=== PATIENT | female | born 1980 | race Hispanic/Latino ===

== ENCOUNTER 2016-08-13 19:18 | Emergency (ER) | payer OTHER ==
[~2016-08-13] VITALS: Ht 157.5 cm; Wt 124.1 kg
[~2016-08-13 19:18] MED LIST: ATEN25TA PO; HYDR25TA4 PO; INSU100C8 SUBQ; INSU100V7 SUBQ; LEVO500T16 PO; METF10002 PO; NOV100I SQ; NOVO7030I SUBQ; PHEN97.5 PO
[2016-08-13 19:24] VITALS: BP 161/87; PULSE 83; RESP 16; O2SAT 100
--- NOTE | 2016-08-13 19:46 | ED.REPORT ---
HPI-Chest Pain Under 40 Date of Service Aug 13, 2016 ED Provider: Kishore Navarro DO Pt is a 35 y.o. female with a hx of HTN and DM who presents to the ED c/o chest pain onset yesterday. Pt reports associated palpitations, SOB, and 1 episode of chills. 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 She denies abdominal pain, nausea, vomiting, fever, and cough. Nursing Notes Stated Complaint: CHEST PAIN Chief Complaint: Chest Pain Nursing Notes Reviewed: Yes Allergies: Coded Allergies: No Known Allergies (Verified Allergy, Unknown, 08/13/16) Scheduled Atenolol (Atenolol) 25 Mg Tablet 25 MG PO DAILY Hydrochlorothiazide (Hydrochlorothiazide) 25 Mg Tablet 25 MG PO DAILY Insulin Aspart (NovoLOG 70/30 U100 Insulin Vial) 100 Unit/Ml Vial 6 UNIT SUBQ AC Insulin Aspart (NovoLOG U100 Insulin Vial) 100 Unit/Ml Mdv 10 UNIT SQ TIDAC use 10 units plus correction (sliding scale) prior to meals please dispense 2 vials (pt has syringes at home at this time) Insulin Aspart (NovoLOG U100 Insulin Vial) 100 U/Ml U 10 UNIT SUBQ TIDAC use 10 units plus correction dose dispense 2 vials Insulin Glargine (Lantus U100 Insulin Vial) 100 Unit/Ml Vial 20 UNIT SUBQ HS Levofloxacin (Levaquin) 500 Mg Tablet 500 MG PO DAILY Metformin (Metformin) 1,000 Mg Tablet 1,000 MG PO BIDWM Phenazopyridine (Azo Standard) 97.5 Mg Tablet 2 TAB PO TIDWM General Time Seen by MD: 19:45 Chief Complaint Chest pain Hx Obtained From: Patient Arrived By: Walk-in Sudden in Onset?: Yes Onset Occurred: Yesterday Past Medical History Past Medical History Reports: Diabetes mellitus, Hypertension Past Surgical History tailbone cyst removal Reports: Tonsillectomy Smoking History Never Smoker Social History Alcohol Use: Denies alcohol use Drug Use: Denies drug use Ambulatory Status Independent Review of Systems Constitutional: Reports: Chills, Denies: Fever Respiratory: Reports: Shortness of breath Cardiovascular: Reports: Chest pain, Palpitations GI: Denies: Abdominal pain, Nausea, Vomiting Complete sys rev & neg: except as marked. Physical Exam Initial Vital Signs Vital Signs (First) Date Time Temp Pulse Resp B/P Pulse Ox O2 Delivery O2 Flow Rate FiO2 08/13/16 19:24 37.1 83 16 161/87 100 Room Air Initial VS: Reviewed Head / Eyes: Atraumatic, Normocephalic Extremities: Vascular intact, Neuro intact Skin: Warm, Dry, No cyanosis Neurologic: Alert, Oriented, Nonfocal Psychiatric: Mood/affect normal, Behavior normal, Normal thought content General/Constitutional: Awake, Alert, No acute distress, Well appearing, Well developed, Well hydrated, Not toxic appearing Appearance / Presentation: Positive: Obese Respiratory / Chest: Atraumatic, Breath sounds NL, Breath sounds = bilat, No respiratory distress, No rales, No rhonchi, No wheezing, No retractions, No stridor Cardiovascular: Heart rate NL, Regular rhythm, Heart sounds NL, No gallop, No murmurs, No rubs, Peripheral circulation NL Abdomen: Atraumatic, Soft, Non-tender, No guarding, No rebound, No distention Tenderness/Guarding/Rebound: Negative: Tender RUQ... Interpretation & Diagnostics Lab Results Interpretation Result Diagram: 08/13/16200908/13/162009 Test 08/13/16 20:02 08/13/16 20:10 08/13/16 22:50 Hold Urine Received (Received) White Blood Count 8.8th/mm3 (3.8-10.1) Red Blood Count 4.66mil/mm3 (3.90-5.20) Hemoglobin 12.2g/dL (12.0-15.6) Hematocrit 37.1% (35.0-46.0) Mean Corpuscular Volume 79.6fL (81-100) Mean Corpuscular Hemoglobin 26.2pg (27.0-35.0) Mean Corpuscular Hemoglobin Concent 32.9% (32.0-37.0) Red Cell Distribution Width 15.0% (12.3-15.4) Platelet Count 263bil/L (150-400) Neutrophils (%) (Auto) 67.9% (40-74) Lymphocytes (%) (Auto) 24.4% (14-46) Monocytes (%) (Auto) 7.1% (4-12) Eosinophils (%) (Auto) 0.3% (0-5) Basophils (%) (Auto) 0.2% (0-3) D-Dimer < 0.5mg/L (<0.50) Sodium Level 137mEq/L (134-144) Potassium Level 4.0mEq/L (3.5-5.2) Chloride Level 101mEq/L (97-108) Carbon Dioxide Level 20mmol/L (18-29) Blood Urea Nitrogen 20mg/dL (6-20) Creatinine 0.59mg/dL (0.57-1.00) Estimat Glomerular Filtration Rate 166mL/min (>59) Glucose Level 93mg/dL (60-99) Calcium Level 9.2mg/dL (8.5-10.1) Magnesium Level 1.5mg/dL (1.6-2.6) Total Bilirubin 0.2mg/dL (0.0-1.2) Aspartate Amino Transf (AST/SGOT) 28U/L (0-50) Alanine Aminotransferase (ALT/SGPT) 21U/L (0-32) Alkaline Phosphatase 53U/L (25-150) Total Protein 7.7g/dL (6.4-8.4) Albumin 4.2g/dL (3.4-5.0) Hold Gudino Top Tube Received (Received) Troponin T 0.010ug/L (0.0-0.011) ECG Interpretation ECG Interpretation: Q-wave in lead 3 Time: 19:48 Interpreted by: ED physician Normal ECG Interpretation: Normal rate (73), Normal sinus rhythm X-Ray Chest Interpretation Chest Xray Interpretation: IMPRESSION: No abnormality seen in the upright portable chest. Dictated by: Carlos Merrill M.D. on 08/13/2016 at 20:21 Approved by: Carlos Merrill M.D. on 08/13/2016 at 20:22 Re-Eval/Medical Decision Med Decision/Clinical Course Tiffanie seems to be suffering from palpitations. She also has a mildly tender chest wall. EKG showed some Q waves inferiorly however no acute ST elevation or depression. She also has LVH which could account for some of the change. EKGs did not show dynamic change. I watched her for 4 hours and did serial troponins. Her troponin remained normal. Her d-dimer was negative and she was low risk Wells criteria. She actually met pulmonary emboli rule out criteria. IV Dilaudid to care of all the pain. She had no interest in being admitted to the hospital. I do not think that she needs to be admitted. She certainly not having a STEMI or acute coronary syndrome. I do think that she has some chest wall pain and palpitations. Her blood pressures up a bit when she came in but came down and pain control. She will be discharged home with close outpatient follow-up. She is given Quincy take home pack for the chest wall pain. She will call her doctor tomorrow. I considered KS, PE, dissection and tension pneumothorax although be very unlikely. Re-Evaluation/Progress : Time of Eval: 22:57 Re-Evaluation/Progress Note: Pt rechecked. Pt's pain has improved with IV dilaudid. She believes she may have injured her chest at work. She is requesting pain medication to take home. Discharge & Departure Primary Impression: Chest pain Chest pain type: other chest pain Qualified Code: R07.89 - Other chest pain Disposition: Home Discharge Condition All VS Reviewed: Yes Condition: Improved Patient Instructions: Chest Pain (ED) Additional Instructions: Your EKG, chest x-ray, troponin, and d-dimer were all reassuring.Your chest pain does not appear to be life threatening. You will however need a close follow-up. Discuss having a stress test performed with your primary care physician. Call tomorrow to schedule an appointment. I will prescribe you Quincy , you can take 1 every 6 hours as needed for pain. Do not drive, drink, or consume acetaminophen while taking Quincy. Do not drive tonight as you have had pain medication administered through your IV. Return if you experience increased chest pain, difficulty breathing, or any new or worsening symptoms. Referrals: Gely Greenwood MD (PCP) Melina Attestation Portions of this note were transcribed by Bonita Daniel. I, Dr. Navarro personally performed the history, physical exam and medical decision-making; I reviewed and confirmed the accuracy of the information in the transcribed note. Signed by : Melina Long, 08/13/16 and [id number]. copies to: Gely Greenwood MD, Todd P DO Aug 13, 2016 19:45 BONITA DANIEL Aug 13, 2016 20:27
[2016-08-13 20:21] LABS: BASOPHILS % (AUTO) 0.2 % (0-3); EOSINOPHILS % (AUTO) 0.3 % (0-5); MONOCYTES % (AUTO) 7.1 % (4-12); Mean Corpuscular Hemoglobin 26.2 pg (27.0-35.0); Mean Corpuscular Volume 79.6 fL (81-100); NEUTROPHILS % (AUTO) 67.9 % (40-74); Platelet Count 263 bil/L (150-400)
--- NOTE | 2016-08-13 20:23 | DRSVH ---
PROCEDURE: X-RAY CHEST ONE VIEW, PORTABLE ([id number]) INDICATIONS: CHEST PAIN TECHNIQUE: One view of the chest was acquired. COMPARISON: [facility], CR, XR CHEST 1VW (PORTABLE), 11/02/2015, 5:06. FINDINGS: Surgical changes and devices: cardiac monitor technician leads are seen over the chest. Lungs and pleura: No pleural effusions or pneumothorax. Lungs are clear. Mediastinum: Mediastinal contours appear normal. Heart size is normal. Bones and chest wall: No suspicious bony lesions. Overlying soft tissues appear unremarkable. IMPRESSION: No abnormality seen in the upright portable chest. Dictated by: Carlos Merrill M.D. on 08/13/2016 at 20:21 Approved by: Carlos Merrill M.D. on 08/13/2016 at 20:22
[2016-08-13] MEDS ORDERED: Ondansetron 2 mg/mL 2 mL Inj IVPUSH PRN (20:35)
[2016-08-13] MEDS ORDERED: HYDROmorphone 0.5 mg/0.5 mL iSecure Syringe IVPUSH PRN (20:35)
[2016-08-13 21:06] LABS: Magnesium 1.5 mg/dL (1.6-2.6)
[2016-08-13 21:07] LABS: TROPONIN T < 0.010 ug/L (0.0-0.011)
[2016-08-13 21:30] VITALS: BP 145/78; PULSE 77; RESP 15; O2SAT 98
[2016-08-13] MEDS ORDERED: _HYDROcodone/APAP 5-325 mg Tablet PO PRN (22:55)
[2016-08-14 00:03] VITALS: BP 116/49; PULSE 83; RESP 13; O2SAT 98
== END 2016-08-14 00:04 | disposition home or self-care (01) ==
LOC: SED 19:18
DX: R07.89 Other chest pain (principal); E11.9 Type 2 diabetes mellitus without complications; I10 Essential (primary) hypertension; Z79.84 Long term (current) use of oral hypoglycemic drugs; Z79.4 Long term (current) use of insulin
CPT/HCPCS: 36415; 71010; 80053; 81025; 83735; 84484; 85025; 85379; 93005; 96374; 96375; 99285; J1170; J2405

== ENCOUNTER 2016-08-24 21:29 | Emergency (ER) | payer OTHER ==
[~2016-08-24] VITALS: Ht 157.5 cm; Wt 125.0 kg
[2016-08-24 21:47] VITALS: BP 165/82; PULSE 66; RESP 18; O2SAT 100
[2016-08-24 22:24] LABS: BASOPHILS % (AUTO) 0.3 % (0-3); EOSINOPHILS % (AUTO) 1.1 % (0-5); MONOCYTES % (AUTO) 5.8 % (4-12); Mean Corpuscular Hemoglobin 25.9 pg (27.0-35.0); Mean Corpuscular Volume 81.2 fL (81-100); Platelet Count 267 bil/L (150-400)
[2016-08-24 22:32] LABS: Magnesium 1.6 mg/dL (1.6-2.6)
--- NOTE | 2016-08-25 00:40 | ED.REPORT ---
HPI-Abd Pain F Under 40 Date of Service Aug 25, 2016 ED Provider: Feliciano Blanton MD A 35 year old female with a history of diabetes and hypertension presents to the ED with RLQ abdominal pain onset 20:30 this evening, while making boxes at work. The pain is constant and rated 10/10. The patient also reports nausea, chills, and subjective fever. She denies diarrhea, vomiting, rash, or other symptoms. The patient has never had similar symptoms in the past. Nursing Notes Stated Complaint: DEEP PAIN IN STOMACH Chief Complaint: Female Abdominal Pain Nursing Notes Reviewed: Yes Allergies: Coded Allergies: No Known Allergies (Verified Allergy, Unknown, 08/24/16) Scheduled Atenolol (Atenolol) 25 Mg Tablet 25 MG PO DAILY Hydrochlorothiazide (Hydrochlorothiazide) 25 Mg Tablet 25 MG PO DAILY Insulin Aspart (NovoLOG 70/30 U100 Insulin Vial) 100 Unit/Ml Vial 6 UNIT SUBQ AC Insulin Aspart (NovoLOG U100 Insulin Vial) 100 Unit/Ml Mdv 10 UNIT SQ TIDAC use 10 units plus correction (sliding scale) prior to meals please dispense 2 vials (pt has syringes at home at this time) Insulin Aspart (NovoLOG U100 Insulin Vial) 100 U/Ml U 10 UNIT SUBQ TIDAC use 10 units plus correction dose dispense 2 vials Insulin Glargine (Lantus U100 Insulin Vial) 100 Unit/Ml Vial 20 UNIT SUBQ HS Levofloxacin (Levaquin) 500 Mg Tablet 500 MG PO DAILY Metformin (Metformin) 1,000 Mg Tablet 1,000 MG PO BIDWM Phenazopyridine (Azo Standard) 97.5 Mg Tablet 2 TAB PO TIDWM Scheduled PRN Polyethylene Glycol 3350 (Miralax) 17 Gm Powd.pack 17 GM PO TID PRN PRN For Constipation General Time Seen by MD: 00:32 Chief Complaint Abdominal pain Hx Obtained From: Patient Arrived By: Walk-in Sudden in Onset?: No Onset Occurred: 1 - 4 hours ago Symptom Duration: Since onset Location: : RLQ Quality: Painful Severity: Current: Pain level 10 out of 10 Severity: Maximum: Pain level 10 out of 10 Associated with: Reports: Chills, Fever, Nausea, Denies: Diarrhea, Vomiting Pertinent Negative: Relieved by nothing Recent Healthcare: No recent doctor visit Similar Sx Previous: No Past Medical History Past Medical History Reports: Diabetes mellitus, Hypertension Past Surgical History Tailbone cyst removal Tonsillectomy Smoking History Never Smoker Social History Alcohol Use: Denies alcohol use Drug Use: Denies drug use Other Social History: Good social support Ambulatory Status Independent Review of Systems Constitutional: Reports: Chills, Fever (Subjective ) Respiratory: Denies: Non-productive cough, Shortness of breath GI: Reports: Abdominal pain (RLQ), Nausea, Denies: Diarrhea, Vomiting Complete sys rev & neg: except as marked. Skin: Denies Rash Physical Exam Initial Vital Signs Vital Signs (First) Date Time Temp Pulse Resp B/P Pulse Ox O2 Delivery O2 Flow Rate FiO2 08/24/16 21:47 37.0 66 18 165/82 100 Room Air Initial VS: Reviewed, Vital signs normal Head / Eyes: Atraumatic, Normocephalic ENT: Conjunctiva normal, No scleral icterus Skin: Warm, Dry, No cyanosis Neurologic: Alert, Oriented, Nonfocal Psychiatric: Mood/affect normal, Behavior normal, Normal thought content General/Constitutional: Awake, Alert Respiratory / Chest: Breath sounds NL, Breath sounds = bilat, No respiratory distress Cardiovascular: Heart rate NL, Regular rhythm, Heart sounds NL Abdomen: Soft Tenderness/Guarding/Rebound: Positive: Guarding voluntary, McBurney's point tender, Tender RLQ... (Worst), Tender diffuse Rovsing's sign positive Interpretation & Diagnostics US APPENDIX: CONCLUSION: The appendix was not convincingly identified. Transmitted to ED by Radiologist Gerard Pratt M.D. at 08/25/2016 - 2:43:00 AM PDT URINE : Negative URINE DIPSTICK: 1.015 sp gravity 6 pH + Leukocyte Esterase +(30) Protein 1000mg/dl Glucose Normal Urobilinogen ~250 Sudeep/ml Occult Blood Lab Results Interpretation Result Diagram: 08/24/16 2202 08/24/16 2202 Test 08/24/16 22:02 08/25/16 01:25 White Blood Count 6.3th/mm3 (3.8-10.1) Red Blood Count 4.25mil/mm3 (3.90-5.20) Hemoglobin 11.0g/dL (12.0-15.6) Hematocrit 34.5% (35.0-46.0) Mean Corpuscular Volume 81.2fL (81-100) Mean Corpuscular Hemoglobin 25.9pg (27.0-35.0) Mean Corpuscular Hemoglobin Concent 31.9% (32.0-37.0) Red Cell Distribution Width 14.7% (12.3-15.4) Platelet Count 267bil/L (150-400) Neutrophils (%) (Auto) 50.0% (40-74) Lymphocytes (%) (Auto) 42.6% (14-46) Monocytes (%) (Auto) 5.8% (4-12) Eosinophils (%) (Auto) 1.1% (0-5) Basophils (%) (Auto) 0.3% (0-3) Sodium Level 135mEq/L (134-144) Potassium Level 4.2mEq/L (3.5-5.2) Chloride Level 97mEq/L (97-108) Carbon Dioxide Level 24mmol/L (18-29) Blood Urea Nitrogen 18mg/dL (6-20) Creatinine 0.67mg/dL (0.57-1.00) Estimat Glomerular Filtration Rate 143mL/min (>59) Glucose Level 231mg/dL (60-99) Calcium Level 9.0mg/dL (8.5-10.1) Magnesium Level 1.6mg/dL (1.6-2.6) Total Bilirubin 0.2mg/dL (0.0-1.2) Aspartate Amino Transf (AST/SGOT) 20U/L (0-50) Alanine Aminotransferase (ALT/SGPT) 13U/L (0-32) Alkaline Phosphatase 51U/L (25-150) Total Protein 7.5g/dL (6.4-8.4) Albumin 4.1g/dL (3.4-5.0) Lipase 55U/L (13-60) Hold Gudino Top Tube Received (Received) Urine Color Yellow (YELLOW) Urine Appearance Clear (CLEAR,HAZY) Urine pH 6.0 (5.0-8.0) Urine Specific [place] 1.020 (1.003-1.035) Urine Protein 30mg/dL (NEG,TRACE) Urine Glucose (UA) 1000mg/dL (NEGATIVE) Urine Ketones Negativemg/dL (NEGATIVE) Urine Occult Blood Moderate (NEGATIVE) Urine Nitrite Negative (NEGATIVE) Urine Bilirubin Negative (NEGATIVE) Urine Urobilinogen Normalmg/dL (NORMAL) Urine Leukocyte Esterase Negative (NEGATIVE) Urine RBC 11-50/hpf (0-2) Urine WBC 0-5/hpf (0-5) Urine Epithelial Cells Few/hpf (NONE-MOD) Urine Crystals None seen (NONE SEEN) Urine Bacteria None/hpf (NONE-FEW) Urine Hyaline Casts None/lpf (NONE) Urine Granular Casts None seen (NONE SEEN) Urine Waxy Casts None seen (NONE SEEN) Urine Red Blood Cell Casts None seen (NONE SEEN) Urine White Blood Cell Casts None seen (NONE SEEN) Urine Mucus None seen (None Seen) Urine Trichomonas None seen (NONE SEEN) Urine Yeast None (NONE SEEN) Urinalysis Comment None Urine Culture Reflexed Not indicated Lab Results Interpretation: Mild chronic anemia, elevated nonfasting glucose. CT Abd / Pelvis Interpretation CONCLUSION: Normal appendix. Diverticulosis with no evidence of diverticulitis. Retained stool within the colon suggestive of mild constipation. Transmitted to ED at 08/25/2016 3:19:14 AM PDT by Gerard Pratt M.D. Study type: Abdominal CT IV contrast Interpretation / Wet Read by: Interpret - Radiologist Re-Eval/Medical Decision Med Decision/Clinical Course 35-year-old female with abdominal pain mostly localized on the right side. Labs are unremarkable. CT scan shows only obstipation, with no other significant abnormalities seen. She will use magnesium citrate and MiraLAX. Follow up with her primary doctor. Source of Hx: Old records Re-Evaluation/Progress : Time of Eval: 04:37 Patient Status: Condition improved Re-Evaluation/Progress Note: Discussed with patient lab, CT, and US results, diagnosis, and plan for discharge. Follow-up and return to the ER instructions given. Patient agrees with plan for care and all questions were addressed. Counseled Regarding: Diagnosis, Lab results, Need for follow-up, When/why to return to ED Discharge & Departure Primary Impression: Constipation Constipation type: unspecified constipation type Qualified Code: K59.00 - Constipation, unspecified Additional Impression: Abdominal pain Abdominal location: generalized Qualified Code: R10.84 - Generalized abdominal pain Disposition: Home Discharge Condition All VS Reviewed: Yes Condition: Improved Patient Instructions: Constipation (ED) Additional Instructions: Your CT scan showed retained stool within the colon suggestive of mild constipation. No other significant abnormality is noted. Magnesium citrate one bottle orally in the a.m. for a BM in the p.m. MiraLAX 1 capful mixed with 8 ounces of liquid 3-4 times daily until stool is soft. Follow-up with your primary care provider. Return to the ER with any new or worsening symptoms. Referrals: Gely Greenwood MD (PCP) Scribe Attestation Portions of this note were transcribed by Daly Cordova. I, Dr. Blanton, personally performed the history, physical exam, and medical decision-making; I reviewed and confirmed the accuracy of the information in the transcribed note. Signed by: Melina Luna, 08/25/2016, 05:05 copies to: Gely Greenwood MD, Howard L MD Aug 25, 2016 00:40 DALY CORDOVA Aug 25, 2016 01:07
[2016-08-25 02:00] LABS: COLOR,URINE YELLOW (YELLOW)
[2016-08-25 02:01] LABS: APPEARANCE,URINE CLEAR (CLEAR,HAZY); OCCULT BLOOD,URINE MODERATE (NEGATIVE); UROBILINOGEN,URINE NORMAL (NORMAL)
[2016-08-25] MEDS ORDERED: POLY17PO6 PO (04:50)
[2016-08-25 05:15] VITALS: BP 156/84; PULSE 102; RESP 16; O2SAT 98
--- NOTE | 2016-08-25 08:32 | DRSVH ---
PROCEDURE: CT ABDOMEN AND PELVIS WITH CONTRAST ([id number]) INDICATIONS: RLQ abd pain, nonvis US TECHNIQUE: After the administration of intravenous contrast, 5 mm thick sections acquired from the diaphragm to the symphysis. 5 mm coronal and sagittal reformats were acquired. For radiation dose reduction, the following was used: automated exposure control, adjustment of mA and/or kV according to patient siz e. COMPARISON: None. FINDINGS: Image quality: Excellent. ABDOMEN: Lung bases: Lung bases are clear. Heart size is normal. Solid organs: Liver and spleen are normal in size and enhancement. Gallbladder is unremarkable. Bi liary system is non dilated. Pancreas enhances normally. No adrenal nodules. Kidneys demonstrate n ormal size and enhancement, without hydronephrosis. Peritoneum and bowel: Bowel loops demonstrate normal wall thickness and caliber. The appendix is thi n walled and gas filled.There are scattered sigmoid diverticula. No evidence for diverticulitis. No f ree fluid or air. Nodes and vessels: No retroperitoneal or mesenteric adenopathy by size criteria. Aorta and inferior vena cava are normal in size. Miscellaneous: No ventral hernias. PELVIS: Genitourinary: Bladder wall thickness is normal. The uterus and ovaries are grossly unremarkable. Miscellaneous: No inguinal hernias or adenopathy. Bones: No suspicious bony lesions. No vertebral body compression fractures. IMPRESSION: 1. No acute intra-abdominal findings. Normal appendix. 2. Mild diverticulosis. No acute diverticulitis. Note: The preliminary [facility] interpretation and the final report are concordant. Dictated by: Emily Quiroz M.D. on 08/25/2016 at 8:28 Approved by: Emily Quiroz M.D. on 08/25/2016 at 8:31
--- NOTE | 2016-08-25 09:14 | DRSVH ---
PROCEDURE: US APPENDIX INDICATIONS: RLQ abd pain TECHNIQUE: Real-time focused scanning was performed of the abdomen with attention to the appendix, with image do cumentation. COMPARISON: None. FINDINGS: Limited evaluation of the right lower quadrant demonstrates no abnormalities. The appendix is not cl early identified sonographically. No abnormal fluid collections or masses seen. IMPRESSION: The appendix is not definitively identified and appendicitis cannot be excluded. If bib cated CT could be performed. Note: These findings are concordant with the preliminary interpretation. Dictated by: Alin COLLINS Interpreted: Augusto Garcia MD on 08/25/2016 at 9:13 Transcribed by: MARIPOSA on 08/25/2016 at 9:14 Approved by: Augusto Garcia M.D. on 08/25/2016 at 17:06
== END 2016-08-25 05:02 | disposition home or self-care (01) ==
LOC: SED 21:29
DX: K59.00 Constipation, unspecified (principal); R10.84 Generalized abdominal pain; E11.9 Type 2 diabetes mellitus without complications; I10 Essential (primary) hypertension; Z79.4 Long term (current) use of insulin; Z79.84 Long term (current) use of oral hypoglycemic drugs
CPT/HCPCS: 36415; 74177; 76705; 80053; 81000; 81025; 83690; 83735; 85025; 99284; Q9967

== ENCOUNTER 2016-10-06 18:51 | Emergency (ER) | payer OTHER ==
[~2016-10-06] VITALS: Ht 157.5 cm; Wt 121.4 kg
[~2016-10-06 18:51] MED LIST changes: +POLY17PO6 PO
[2016-10-06 18:57] VITALS: BP 140/94; PULSE 89; RESP 16; O2SAT 100
[2016-10-06] MEDS ORDERED: 0.9% Sodium Chloride 1,000 ML IV ONE (19:19)
[2016-10-06] MEDS ORDERED: Ondansetron 2 mg/mL 2 mL Inj IVPUSH PRN (19:20)
[2016-10-06] MEDS ORDERED: HYDROmorphone 0.5 mg/0.5 mL iSecure Syringe IVPUSH PRN (19:20)
--- NOTE | 2016-10-06 19:21 | ED.REPORT ---
HPI-Abd Pain F Under 40 Date of Service October 06, 2016 ED Provider: Demar Bray MD 35 y/o female with a hx of DM Type I and HTN presents to the ED complaining of abdominal pain, onset 3 days ago, with worse pain in the lower quadrant. She also complains of nausea, chills and lack of appetite. The pt denies abnormal vaginal discharge, bleeding and dysuria. Pt is not sexually active and denies hx of STDs. Pt's PCP: Dr Greenwood at [facility]. Nursing Notes Stated Complaint: ABDOMINAL PAIN Chief Complaint: Female Abdominal Pain Nursing Notes Reviewed: Yes Allergies: Coded Allergies: No Known Allergies (Verified Allergy, Unknown, 08/24/16) Scheduled Atenolol (Atenolol) 25 Mg Tablet 25 MG PO DAILY Hydrochlorothiazide (Hydrochlorothiazide) 25 Mg Tablet 25 MG PO DAILY Insulin Aspart (NovoLOG 70/30 U100 Insulin Vial) 100 Unit/Ml Vial 6 UNIT SUBQ AC Insulin Aspart (NovoLOG U100 Insulin Vial) 100 Unit/Ml Mdv 10 UNIT SQ TIDAC use 10 units plus correction (sliding scale) prior to meals please dispense 2 vials (pt has syringes at home at this time) Insulin Aspart (NovoLOG U100 Insulin Vial) 100 U/Ml U 10 UNIT SUBQ TIDAC use 10 units plus correction dose dispense 2 vials Insulin Glargine (Lantus U100 Insulin Vial) 100 Unit/Ml Vial 20 UNIT SUBQ HS Levofloxacin (Levaquin) 500 Mg Tablet 500 MG PO DAILY Metformin (Metformin) 1,000 Mg Tablet 1,000 MG PO BIDWM Metronidazole (Metrogel-Vaginal) 5 Applic/70 Gm Gel 1 APPLIC VG HS Phenazopyridine (Azo Standard) 97.5 Mg Tablet 2 TAB PO TIDWM Sulfamethoxazole/Trimeth 800-160 mg (Bactrim DS) 1 Each Tablet 1 TABLET PO BID Scheduled PRN Polyethylene Glycol 3350 (Miralax) 17 Gm Powd.pack 17 GM PO TID PRN PRN For Constipation General Time Seen by MD: 19:16 Chief Complaint Abdominal pain Hx Obtained From: Patient Arrived By: Walk-in Sudden in Onset?: No Onset Occurred: 3 days ago Symptom Duration: Since onset Location: : Abdomen lower Quality: Painful Severity: Current: Mild Severity: Maximum: Mild Recent Healthcare: Recent doctor visit Similar Sx Previous: No Past Medical History Past Medical History Reports: Diabetes mellitus, Hypertension Past Surgical History Tailbone cyst removal Tonsillectomy Smoking History Never Smoker Social History Alcohol Use: Denies alcohol use Drug Use: Denies drug use Other Social History: Good social support Ambulatory Status Independent Review of Systems Reports: lack of appetite. Constitutional: Reports: Chills GI: Reports: Abdominal pain, Nausea Female: Denies: Dysuria, Vaginal bleeding - abnl, Vaginal discharge Complete sys rev & neg: except as marked. Physical Exam Initial Vital Signs Vital Signs (First) Date Time Temp Pulse Resp B/P Pulse Ox O2 Delivery O2 Flow Rate FiO2 10/06/16 18:57 36.7 89 16 140/94 100 Room Air Initial VS: Reviewed Head / Eyes: Atraumatic, Normocephalic, PERRL ENT: Mucous membranes moist, Conjunctiva normal, No scleral icterus Neck: Supple, Full range of motion Extremities: Vascular intact, Neuro intact, No swelling, No tenderness Skin: Warm, Dry, No cyanosis Neurologic: Alert, Oriented, Nonfocal General/Constitutional: Awake, Alert, Cooperative, Not toxic appearing Appearance / Presentation: Positive: Obese Respiratory / Chest: Atraumatic, Breath sounds NL, Breath sounds = bilat, No respiratory distress, No rales, No rhonchi, No wheezing Cardiovascular: Heart rate NL, Regular rhythm, Heart sounds NL, No gallop, No murmurs Abdomen: Atraumatic, No guarding, No rebound Suprapubic tenderness. Back: Atraumatic, Full range of motion, Non-tender Pelvic Exam: Negative: Adnexal tenderness L, Adnexal tenderness R, Cervical motion tend... Normal external genitalia. Interpretation & Diagnostics Lab Results Interpretation Result Diagram: 10/06/16191110/06/162024 Test 10/06/16 19:12 10/06/16 20:25 10/06/16 21:49 White Blood Count 7.3th/mm3 (3.8-10.1) Red Blood Count 3.93mil/mm3 (3.90-5.20) Hemoglobin 10.3g/dL (12.0-15.6) Hematocrit 31.3% (35.0-46.0) Mean Corpuscular Volume 79.6fL (81-100) Mean Corpuscular Hemoglobin 26.2pg (27.0-35.0) Mean Corpuscular Hemoglobin Concent 32.9% (32.0-37.0) Red Cell Distribution Width 14.5% (12.3-15.4) Platelet Count 323bil/L (150-400) Neutrophils (%) (Auto) 68.5% (40-74) Lymphocytes (%) (Auto) 21.2% (14-46) Monocytes (%) (Auto) 9.2% (4-12) Eosinophils (%) (Auto) 0.6% (0-5) Basophils (%) (Auto) 0.4% (0-3) Hold Purple Top Tube Received (Received) Urine Color Yellow (YELLOW) Urine Appearance Clear (CLEAR,HAZY) Urine pH 6.0 (5.0-8.0) Urine Specific [place] <1.005 (1.003-1.035) Urine Protein 100mg/dL (NEG,TRACE) Urine Glucose (UA) 500mg/dL (NEGATIVE) Urine Ketones 15mg/dL (NEGATIVE) Urine Occult Blood Small (NEGATIVE) Urine Nitrite Negative (NEGATIVE) Urine Bilirubin Negative (NEGATIVE) Urine Urobilinogen Normalmg/dL (NORMAL) Urine Leukocyte Esterase Moderate (NEGATIVE) Urine RBC 0-2/hpf (0-2) Urine WBC >50/hpf (0-5) Urine Epithelial Cells Many/hpf (NONE-MOD) Urine Crystals None seen (NONE SEEN) Urine Bacteria Few/hpf (NONE-FEW) Urine Hyaline Casts None/lpf (NONE) Urine Granular Casts None seen (NONE SEEN) Urine Waxy Casts None seen (NONE SEEN) Urine Red Blood Cell Casts None seen (NONE SEEN) Urine White Blood Cell Casts None seen (NONE SEEN) Urine Mucus None seen (None Seen) Urine Trichomonas Present (NONE SEEN) Urine Yeast None (NONE SEEN) Urinalysis Comment None Urine Culture Reflexed Indicated Hold Urine Received (Received) Hold [place] Top Tube Received (Received) Sodium Level 129mEq/L (134-144) Potassium Level 3.9mEq/L (3.5-5.2) Chloride Level 92mEq/L (97-108) Carbon Dioxide Level 22mmol/L (18-29) Blood Urea Nitrogen 12mg/dL (6-20) Creatinine 0.64mg/dL (0.57-1.00) Estimat Glomerular Filtration Rate 151mL/min (>59) Glucose Level 295mg/dL (60-99) Calcium Level 8.9mg/dL (8.5-10.1) Magnesium Level 2.0mg/dL (1.6-2.6) Total Bilirubin 0.3mg/dL (0.0-1.2) Aspartate Amino Transf (AST/SGOT) 11U/L (0-50) Alanine Aminotransferase (ALT/SGPT) 9U/L (0-32) Alkaline Phosphatase 72U/L (25-150) Total Protein 8.0g/dL (6.4-8.4) Albumin 3.5g/dL (3.4-5.0) Lipase 35U/L (13-60) Hold [place] Top Tube Received (Received) CT Abd / Pelvis Interpretation Impression: Cystitis with pyelonephritis. Signed Shaun Billings M.D. 10/06/16; 1832 Study type: Abdominal CT IV contrast Procedures Lab Results Interpretation Result Diagram: 10/06/16191110/06/162024 Test 10/06/16 19:12 10/06/16 20:25 10/06/16 21:49 White Blood Count 7.3th/mm3 (3.8-10.1) Red Blood Count 3.93mil/mm3 (3.90-5.20) Hemoglobin 10.3g/dL (12.0-15.6) Hematocrit 31.3% (35.0-46.0) Mean Corpuscular Volume 79.6fL (81-100) Mean Corpuscular Hemoglobin 26.2pg (27.0-35.0) Mean Corpuscular Hemoglobin Concent 32.9% (32.0-37.0) Red Cell Distribution Width 14.5% (12.3-15.4) Platelet Count 323bil/L (150-400) Neutrophils (%) (Auto) 68.5% (40-74) Lymphocytes (%) (Auto) 21.2% (14-46) Monocytes (%) (Auto) 9.2% (4-12) Eosinophils (%) (Auto) 0.6% (0-5) Basophils (%) (Auto) 0.4% (0-3) Hold Purple Top Tube Received (Received) Urine Color Yellow (YELLOW) Urine Appearance Clear (CLEAR,HAZY) Urine pH 6.0 (5.0-8.0) Urine Specific [place] <1.005 (1.003-1.035) Urine Protein 100mg/dL (NEG,TRACE) Urine Glucose (UA) 500mg/dL (NEGATIVE) Urine Ketones 15mg/dL (NEGATIVE) Urine Occult Blood Small (NEGATIVE) Urine Nitrite Negative (NEGATIVE) Urine Bilirubin Negative (NEGATIVE) Urine Urobilinogen Normalmg/dL (NORMAL) Urine Leukocyte Esterase Moderate (NEGATIVE) Urine RBC 0-2/hpf (0-2) Urine WBC >50/hpf (0-5) Urine Epithelial Cells Many/hpf (NONE-MOD) Urine Crystals None seen (NONE SEEN) Urine Bacteria Few/hpf (NONE-FEW) Urine Hyaline Casts None/lpf (NONE) Urine Granular Casts None seen (NONE SEEN) Urine Waxy Casts None seen (NONE SEEN) Urine Red Blood Cell Casts None seen (NONE SEEN) Urine White Blood Cell Casts None seen (NONE SEEN) Urine Mucus None seen (None Seen) Urine Trichomonas Present (NONE SEEN) Urine Yeast None (NONE SEEN) Urinalysis Comment None Urine Culture Reflexed Indicated Hold Urine Received (Received) Hold [place] Top Tube Received (Received) Sodium Level 129mEq/L (134-144) Potassium Level 3.9mEq/L (3.5-5.2) Chloride Level 92mEq/L (97-108) Carbon Dioxide Level 22mmol/L (18-29) Blood Urea Nitrogen 12mg/dL (6-20) Creatinine 0.64mg/dL (0.57-1.00) Estimat Glomerular Filtration Rate 151mL/min (>59) Glucose Level 295mg/dL (60-99) Calcium Level 8.9mg/dL (8.5-10.1) Magnesium Level 2.0mg/dL (1.6-2.6) Total Bilirubin 0.3mg/dL (0.0-1.2) Aspartate Amino Transf (AST/SGOT) 11U/L (0-50) Alanine Aminotransferase (ALT/SGPT) 9U/L (0-32) Alkaline Phosphatase 72U/L (25-150) Total Protein 8.0g/dL (6.4-8.4) Albumin 3.5g/dL (3.4-5.0) Lipase 35U/L (13-60) Hold [place] Top Tube Received (Received) Re-Eval/Medical Decision Med Decision/Clinical Course Med Decision/Clinical Course: 35 year-old diabetic who is non-toxic in appearance, has pyelonephritis by lab/imaging. Rocephin started, will treat with bactrim. Source of Hx: Old records Re-Evaluation/Progress #1: Time of Eval: 21:35 Re-Evaluation/Progress Note: Rechecked pt. She reports chills. Temperature = 38.7 degree celsius. She is also experiencing difficulty getting IV. Abdomen more pronounced and tender, greater on left side. Pt informed that a CT is required in case of appendicitis. Pt understands and agrees with the plan. Re-Evaluation/Progress #2: Time of Eval: 00:12 Patient Status: Condition improved Re-Evaluation/Progress Note: Rechecked pt. Discussed lab, imaging results and diagnosis. Informed the pt of the plan to discharge. Pt understands and agrees with plan. F/U instructions and RTER warning given. All questions addressed. Counseled Regarding: Diagnosis, Lab results, Need for follow-up, When/why to return to ED Discharge & Departure Primary Impression: Pyelonephritis Additional Impression: Trichomonas vaginitis Disposition: Home Discharge Condition All VS Reviewed: Yes Patient Instructions: Acute Pyelonephritis (ED) Additional Instructions: Emergency Department evaluation included interview, examination labs and CT of the abdomen and pelvis. Labs and imaging suggests the possibility of a kidney infection. The fever is noted otherwise you appear well and we are hoping to keep you out of the hospital. We gave IV fluids and Rocephin 2 g intravenously , this antibiotic will cover U for 24 hours. Start bactrim DS twice a day for 10 days tomorrow afternoon. Hydrocodone/APAP one to 2 every 4 hours as needed for pain, may also use ibuprofen 400-600 mg every 6-8 hours. It adequate fluids and rest. Return to emergency department. If Getting worse, having frequent vomiting increasing pain generalized weakness. We also found a vaginal infection with trichomonas. There is a prescription for metronidazole vaginal gel, use that as directed. Plan to follow up with primary care in about 3 days. Referrals: Gely Greenwood MD (PCP) Scribe Attestation Portions of this note were transcribed by Syd Cruz. I, , personally performed the history, physical exam and medical decision-making;I reviewed and confirmed the accuracy of the information in the transcribed note. Signed by Melina Iqbal. 10/07/16 0022 copies to: Gely Greenwood MD, Donald L MD October 06, 2016 19:21 Syd Cruz October 06, 2016 19:29
[2016-10-06 19:26] LABS: BASOPHILS % (AUTO) 0.4 % (0-3); EOSINOPHILS % (AUTO) 0.6 % (0-5); MONOCYTES % (AUTO) 9.2 % (4-12); Mean Corpuscular Hemoglobin 26.2 pg (27.0-35.0); Mean Corpuscular Volume 79.6 fL (81-100); NEUTROPHILS % (AUTO) 68.5 % (40-74); Platelet Count 323 bil/L (150-400)
[2016-10-06 19:45] LABS: APPEARANCE,URINE CLEAR (CLEAR,HAZY); COLOR,URINE YELLOW (YELLOW)
[2016-10-06 19:46] LABS: OCCULT BLOOD,URINE SMALL (NEGATIVE); UROBILINOGEN,URINE NORMAL (NORMAL)
[2016-10-06 23:13] VITALS: BP 142/89; PULSE 82; RESP 17; O2SAT 100
[2016-10-06] MEDS ORDERED: cefTRIAXone Inj 2,000 MG in Dextrose 5% Minibag Plus 50 ML IV ONE (23:20)
[2016-10-06] MEDS ORDERED: _HYDROcodone/APAP 5-325 mg Tablet PO PRN (23:30)
[2016-10-07] MEDS ORDERED: METR70GE14 VG (00:21)
[2016-10-07] MEDS ORDERED: SULF1TAB7 PO (00:21)
[2016-10-07 00:38] VITALS: BP 139/83; PULSE 80; RESP 16; O2SAT 100
--- NOTE | 2016-10-07 09:17 | DRSVH ---
PROCEDURE: CT ABDOMEN AND PELVIS WITH CONTRAST (PNL-7102) INDICATIONS: abd pain fever TECHNIQUE: After the administration of intravenous contrast, 5 mm thick sections acquired from the diaphragm to the symphysis. 5 mm coronal and sagittal reformats were acquired. For radiation dose reduction, the following was used: automated exposure control, adjustment of mA and/or kV according to patient sandy willams. COMPARISON: [facility], CT, CT ABD PELVIS W CON, 08/25/2016, 3:10. FINDINGS: Image quality: Excellent. ABDOMEN: Lung bases: Lung bases are clear. Heart size is normal. Solid organs: Liver and spleen are normal in size and enhancement. Gallbladder is within normal anderson its. Biliary system is non dilated. Pancreas enhances normally. No adrenal nodules. Kidneys demon strate normal size, without hydronephrosis. There are wedge-shaped foci of decreased enhancement in t he kidneys bilaterally suspicious for pyelonephritis. Peritoneum and bowel: Bowel loops demonstrate normal wall thickness and caliber. No free fluid or a ir. The appendix is normal. Nodes and vessels: No retroperitoneal or mesenteric adenopathy by size criteria. Aorta and inferior vena cava are normal in size. Miscellaneous: No ventral hernias. PELVIS: Genitourinary: Bladder wall is mildly thickened suspicious for cystitis. Miscellaneous: No inguinal hernias or adenopathy. Bones: No suspicious bony lesions. No vertebral body compression fractures. IMPRESSION: 1. Findings most consistent with pyelonephritis and cystitis. Please correlate with clinical and urin alysis data. 2. The appendix is normal. 3. No dilated loops of bowel. 4. No free fluid or air. Findings concordant with preliminary report. Dictated by: Pat Ayala MD, PhD on 10/07/2016 at 8:56 Approved by: Pat Ayala MD, PhD on 10/07/2016 at 9:16
== END 2016-10-07 00:43 | disposition home or self-care (01) ==
LOC: SED 18:51
DX: N12 Tubulo-interstitial nephritis, not specified as acute or chronic (principal); A59.01 Trichomonal vulvovaginitis; E10.9 Type 1 diabetes mellitus without complications; I10 Essential (primary) hypertension; Z79.4 Long term (current) use of insulin; Z79.84 Long term (current) use of oral hypoglycemic drugs
CPT/HCPCS: 36415; 74177; 80053; 81000; 81025; 82948; 83690; 83735; 85025; 87086; 87088; 87210; 87491; 87591; 96361; 96365; 96375; 99285; J0696; J1170; J2405; J7030; Q9967

== ENCOUNTER 2016-12-23 23:20 | Emergency (ER) | payer OTHER ==
[~2016-12-23] VITALS: Ht 157.5 cm; Wt 122.7 kg
[~2016-12-23 23:20] MED LIST changes: +METR70GE14 VG; +SULF1TAB7 PO
[2016-12-23 23:21] VITALS: BP 181/96; PULSE 71; RESP 19; O2SAT 100
--- NOTE | 2016-12-24 00:10 | ED.REPORT ---
HPI-Abd Pain F Under 40 Date of Service Dec 24, 2016 ED Provider: Kishore Navarro DO The patient is a 36 year old female w/ a hx of DM and HTN who presents to the ED due to severe lower abdominal pain onset 4 hrs ago. Associated symptoms include dysuria, increased urge to urinate, flank pain, and back pain. She believes she has a UTI. Pt reports she also was diagnosed with Trichomonas which she is unsure if this has resolved after taking medication. She denies abnormal vaginal discharge and . She is currently on her period. Nursing Notes Stated Complaint: BLADDER PAIN Chief Complaint: Female Abdominal Pain Nursing Notes Reviewed: Yes Allergies: Coded Allergies: No Known Allergies (Verified Allergy, Unknown, 12/23/16) Scheduled Atenolol (Atenolol) 25 Mg Tablet 25 MG PO DAILY Hydrochlorothiazide (Hydrochlorothiazide) 25 Mg Tablet 25 MG PO DAILY Insulin Aspart (NovoLOG 70/30 U100 Insulin Vial) 100 Unit/Ml Vial 6 UNIT SUBQ AC Insulin Aspart (NovoLOG U100 Insulin Vial) 100 Unit/Ml Mdv 10 UNIT SQ TIDAC use 10 units plus correction (sliding scale) prior to meals please dispense 2 vials (pt has syringes at home at this time) Insulin Aspart (NovoLOG U100 Insulin Vial) 100 U/Ml U 10 UNIT SUBQ TIDAC use 10 units plus correction dose dispense 2 vials Insulin Glargine (Lantus U100 Insulin Vial) 100 Unit/Ml Vial 20 UNIT SUBQ HS Levofloxacin (Levaquin) 500 Mg Tablet 500 MG PO DAILY Metformin (Metformin) 1,000 Mg Tablet 1,000 MG PO BIDWM Metronidazole (Metrogel-Vaginal) 5 Applic/70 Gm Gel 1 APPLIC VG HS Phenazopyridine (Azo Standard) 97.5 Mg Tablet 2 TAB PO TIDWM Sulfamethoxazole/Trimeth 800-160 mg (Bactrim DS) 1 Each Tablet 1 TABLET PO BID Scheduled PRN Polyethylene Glycol 3350 (Miralax) 17 Gm Powd.pack 17 GM PO TID PRN PRN For Constipation General Time Seen by MD: 00:05 Chief Complaint Abdominal pain Hx Obtained From: Patient Arrived By: Walk-in Sudden in Onset?: Yes Onset Occurred: 1 - 4 hours ago Symptom Duration: Since onset Location: : Abdomen lower: Back: Flank left: Flank right Quality: Painful Severity: Current: Severe Recent Healthcare: No recent doctor visit, No recent hospitalization Similar Sx Previous: No Past Medical History Past Medical History Reports: Diabetes mellitus, Hypertension Past Surgical History Tailbone cyst removal Tonsillectomy Smoking History Never Smoker Social History Alcohol Use: Denies alcohol use Drug Use: Denies drug use Other Social History: Good social support Ambulatory Status Independent Review of Systems GI: Reports: Abdominal pain Female: Reports: Dysuria, Flank pain, Pelvic pain, Urinary urgency, Denies: , Vaginal bleeding - abnl, Vaginal discharge Musculoskeletal: Reports: Back pain Complete sys rev & neg: except as marked. Physical Exam Initial Vital Signs Vital Signs (First) Date Time Temp Pulse Resp B/P Pulse Ox O2 Delivery O2 Flow Rate FiO2 12/23/16 23:21 36.5 71 19 181/96 100 Room Air Initial VS: Reviewed General/Constitutional: Awake, Alert, Cooperative Respiratory / Chest: Atraumatic, Breath sounds NL, Breath sounds = bilat, No respiratory distress Cardiovascular: Heart rate NL, Regular rhythm, Heart sounds NL, No gallop, No murmurs, No rubs Abdomen: Soft Tenderness/Guarding/Rebound: Positive: Tender suprapubic Back: Atraumatic, Inspection NL, Full range of motion Head / Eyes: Atraumatic, Normocephalic Skin: Atraumatic, Color NL, No rash Neurologic: Oriented X3, Speech NL Upper Extremity / MS: Atraumatic, Inspection NL, Full range of motion, No deformity Wrist / Hand: Atraumatic, Inspection NL, Full range of motion, No deformity Lower Extremity / Pelvis / MS: Atraumatic, Inspection NL, Full range of motion , No deformity Interpretation & Diagnostics Lab Results Interpretation Result Diagram: 12/24/16 0133 12/24/16 0133 Test 12/24/16 00:02 12/24/16 00:21 12/24/16 01:33 Hold Urine Received (Received) Urine Color Dark yellow (YELLOW) Urine Appearance Hazy (CLEAR,HAZY) Urine pH 5.5 (5.0-8.0) Urine Specific [place] >1.030 (1.003-1.035) Urine Protein 100mg/dL (NEG,TRACE) Urine Glucose (UA) Negativemg/dL (NEGATIVE) Urine Ketones Negativemg/dL (NEGATIVE) Urine Occult Blood Large (NEGATIVE) Urine Nitrite Negative (NEGATIVE) Urine Bilirubin Negative (NEGATIVE) Urine Urobilinogen Normalmg/dL (NORMAL) Urine Leukocyte Esterase Negative (NEGATIVE) Urine RBC >50/hpf (0-2) Urine WBC 0-5/hpf (0-5) Urine Epithelial Cells Many/hpf (NONE-MOD) Urine Crystals None seen (NONE SEEN) Urine Bacteria Moderate/hpf (NONE-FEW) Urine Hyaline Casts None/lpf (NONE) Urine Granular Casts None seen (NONE SEEN) Urine Waxy Casts None seen (NONE SEEN) Urine Red Blood Cell Casts None seen (NONE SEEN) Urine White Blood Cell Casts None seen (NONE SEEN) Urine Mucus None seen (None Seen) Urine Trichomonas None seen (NONE SEEN) Urine Yeast None (NONE SEEN) Urinalysis Comment None Urine Culture Reflexed Indicated White Blood Count 13.4th/mm3 (3.8-10.1) Red Blood Count 4.42mil/mm3 (3.90-5.20) Hemoglobin 11.9g/dL (12.0-15.6) Hematocrit 35.6% (35.0-46.0) Mean Corpuscular Volume 80.5fL (81-100) Mean Corpuscular Hemoglobin 26.9pg (27.0-35.0) Mean Corpuscular Hemoglobin Concent 33.4% (32.0-37.0) Red Cell Distribution Width 14.6% (12.3-15.4) Platelet Count 283bil/L (150-400) Neutrophils (%) (Auto) 80.6% (40-74) Lymphocytes (%) (Auto) 13.6% (14-46) Monocytes (%) (Auto) 5.4% (4-12) Eosinophils (%) (Auto) 0.2% (0-5) Basophils (%) (Auto) 0.1% (0-3) Hold [place] Top Tube Received (Received) Sodium Level 135mEq/L (134-144) Potassium Level 3.7mEq/L (3.5-5.2) Chloride Level 99mEq/L (97-108) Carbon Dioxide Level 20mmol/L (18-29) Blood Urea Nitrogen 15mg/dL (6-20) Creatinine 0.57mg/dL (0.57-1.00) Estimat Glomerular Filtration Rate 172mL/min (>59) Glucose Level 284mg/dL (60-99) Calcium Level 8.9mg/dL (8.5-10.1) Total Bilirubin 0.2mg/dL (0.0-1.2) Aspartate Amino Transf (AST/SGOT) 16U/L (0-50) Alanine Aminotransferase (ALT/SGPT) 15U/L (0-32) Alkaline Phosphatase 52U/L (25-150) Total Protein 7.1g/dL (6.4-8.4) Albumin 3.7g/dL (3.4-5.0) Hold [place] Top Tube Received (Received) Lab Results Interpretation: Upreg negative Re-Eval/Medical Decision Med Decision/Clinical Course 1310: Pt rechecked. Urine shows signs of infection and is highly contaminated. Upon recheck, pt has increasing moderate tenderness localizing to RLQ. Plan to proceed to CT scan. Laboratory work confirms that she is not and she does have a leukocytosis with normal renal function. CT scan is pending. Care endorsed to Dr. Blanton will make disposition. Care endorsed 2:16 AM. Re-Evaluation/Progress #1: Time of Eval: 13:10 Re-Evaluation/Progress Note: Pt rechecked. Urine shows signs of infection and is highly contaminated. Upon recheck, pt has increasing moderate tenderness localizing to RLQ. Plan to proceed to CT scan. Re-Evaluation/Progress #2: Time of Eval: 03:01 Re-Evaluation/Progress Note: Care transferred to Dr. Feliciano Blanton at change of shift. Waiting on CT scan results. Counseled Regarding: Diagnosis, Lab results, Need for follow-up, When/why to return to ED Discharge & Departure Shift Change Sign-Out Patient Care Transferred: Yes Discussed Complaint(s): Yes Laboratory Evaluation: Ordered, not yet done Imaging Studies: Ordered, not yet done Input from Consult: Pt care transferred to Dr. Feliciano Blanton at change of shift Primary Impression: Urinary tract infection Urinary tract infection type: site unspecified Hematuria presence: without hematuria Qualified Code: N39.0 - Urinary tract infection, site not specified Additional Impression: Abdominal pain Abdominal location: right lower quadrant Qualified Code: R10.31 - Right lower quadrant pain Disposition: Home Discharge Condition All VS Reviewed: Yes Condition: Stable Referrals: Gely Greenwood MD (PCP) Care Transferred to: Care transferred to Dr. Feliciano Blanton at change of shift. Care Transferred at: 03:01 Indu Attestation Portion of this note were transcribed by Leona Multani. I, Dr. Navarro, personally performed the history, physical exam, and medical decision-making: I reviewed and confirmed the accuracy for the information in the transcribed note. Signed by: indu Chappell, 12/23/16 0100 copies to: Gely Greenwood MD, Todd P DO Dec 24, 2016 00:10 Leona Multani Dec 24, 2016 00:18
[2016-12-24 00:44] LABS: APPEARANCE,URINE HAZY (CLEAR,HAZY); COLOR,URINE DARK YELLOW (YELLOW); OCCULT BLOOD,URINE LARGE (NEGATIVE); PH,URINE 5.5 (5.0-8.0); UROBILINOGEN,URINE NORMAL (NORMAL)
[2016-12-24 01:37] LABS: BASOPHILS % (AUTO) 0.1 % (0-3); EOSINOPHILS % (AUTO) 0.2 % (0-5); MONOCYTES % (AUTO) 5.4 % (4-12); Mean Corpuscular Hemoglobin 26.9 pg (27.0-35.0); Mean Corpuscular Volume 80.5 fL (81-100); NEUTROPHILS % (AUTO) 80.6 % (40-74); Platelet Count 283 bil/L (150-400)
[2016-12-24] MEDS ORDERED: HYDR-4003 PO (03:19)
[2016-12-24 04:02] VITALS: BP 181/96; PULSE 71; RESP 19; O2SAT 100
[2016-12-24] MEDS ORDERED: Sodium Chloride LOK Flush 10 mL Syringe IVFLUSH SCH (08:30)
[2016-12-24] MEDS ORDERED: _Trimethoprim-Sulfa 160/800 mg Tablet PO SCH (08:30)
--- NOTE | 2016-12-24 08:36 | DRSVH ---
PROCEDURE: CT ABDOMEN AND PELVIS WITH CONTRAST (PNL-7102) INDICATIONS: RLQ pain TECHNIQUE: After the administration of intravenous contrast, 5 mm thick sections acquired from the diaphragm to the symphysis. 5 mm coronal and sagittal reformats were acquired. For radiation dose reduction, the following was used: automated exposure control, adjustment of mA and/or kV according to patient sandy willams. COMPARISON: [facility], CT, CT ABD PELVIS W CON, 08/25/2016, 3:10. [facility], CT, CT ABD PELVIS W CON, 10/06/2016, 22:23. FINDINGS: Image quality: Excellent. ABDOMEN: Lung bases: Lung bases are clear. Heart size is normal. Solid organs: Liver and spleen are normal in size and enhancement. Gallbladder is contracted, but w ithin normal limits. Biliary system is non dilated. Pancreas enhances normally. No adrenal nodules . Kidneys demonstrate normal size and enhancement, without hydronephrosis. Peritoneum and bowel: Bowel loops demonstrate normal wall thickness and caliber. A few scattered div erticula are noted without evidence of diverticulitis. No free fluid or air. The appendix is normal. Nodes and vessels: No retroperitoneal or mesenteric adenopathy by size criteria. Aorta and inferior vena cava are normal in size. Miscellaneous: No ventral hernias. PELVIS: Genitourinary: Bladder wall is diffusely thickened. Miscellaneous: No inguinal hernias or adenopathy. Bones: No suspicious bony lesions. No vertebral body compression fractures. IMPRESSION: 1. No evidence of appendicitis. 2. Diffuse urinary bladder wall thickening which could be due to non-distention or inflammation/infec tion. Please correlate with urinalysis data. Dictated by: Pat Ayala MD, PhD on 12/24/2016 at 8:27 Approved by: Pat Ayala MD, PhD on 12/24/2016 at 8:34
== END 2016-12-24 04:03 | disposition home or self-care (01) ==
LOC: SED 23:20
DX: N39.0 Urinary tract infection, site not specified (principal); N32.89 Other specified disorders of bladder; B96.20 Unspecified Escherichia coli [E. coli] as the cause of diseases classified elsewhere; I10 Essential (primary) hypertension; E11.9 Type 2 diabetes mellitus without complications; Z79.4 Long term (current) use of insulin; Z79.84 Long term (current) use of oral hypoglycemic drugs
CPT/HCPCS: 36415; 74177; 80053; 81000; 81025; 85025; 87086; 87088; 87186; 87491; 87591; 96374; 99285; J1885; Q9967